=== PATIENT | female | born 1995 | race Two or more races ===

== ENCOUNTER 2017-05-05 20:27 | Emergency (ER) | payer MEDICAID ==
[~2017-05-05] VITALS: Ht 160 cm; Wt 76.2 kg
[~2017-05-05 20:27] MED LIST: NORPTMEDS CO
[2017-05-05 21:57] LABS: Urine Bilirubin Negative (Negative); Urine Blood Negative /uL (Negative); Urine Color Yellow (Yellow); Urine Glucose Normal (Normal); Urine Nitrite Negative (Negative); Urine RBC 3 /hpf (0 - 4); Urine Squamous Epithelial Cell FEW /hpf (<5); Urine Urobilinogen Normal (Negative)
[2017-05-05 22:04] LABS: CONDITION Y; Hematocrit 43.5 % (36.0-46.0); Hemoglobin 15.3 g/dL (12.2-16.2); Mean Corpuscular Hemoglobin 33.8 pg (28.0-32.0); Mean Corpuscular Hgb Conc. 35.2 g/dL (32.0-36.0); Mean Corpuscular Volume 96.2 fL (80.0-100.0); Mean Platelet Volume 9.3 fL (7.4-10.4); Platelet Count (auto) 246 10^3/uL (140-450); Red Cell Distribution Width 12.4 % (11.6-16.0); SUSPECT SEE PRINTOUT; White Blood Cell 18.1 10^3/uL (4.4-10.8)
[2017-05-05 22:06] LABS: Metamyelocytes % 0; Myelocytes % 0; Promyelocytes % 0; Reactive Lymphocytes 0
[2017-05-05 22:10] LABS: Partial Thromboplastin Time 23.8 sec (22.64-33.71); Prothrombin Time 10.9 sec (9.37-12.3)
[2017-05-05 22:42] LABS: Albumin 4.6 g/dL (3.4-5.0); Alkaline Phosphatase 87 U/L (45-117); Amylase 39 U/L (25-115); Anion Gap 12 (5-15); Aspartate Aminotransferase 22 U/L (15-37); BUN/Creatinine Ratio 13.7; Bilirubin, Total 1.5 mg/dL (0.2-1.0); Blood Urea Nitrogen 10 mg/dL (7-18); Calcium 8.8 mg/dL (8.5-10.1); Carbon Dioxide 20 mmol/L (21-32); Chloride 105 mmol/L (98-107); GFR African American 127 mL/min; GFR Non-African American 105 mL/min; Glucose 98 mg/dL (74-106); Magnesium 1.8 mg/dL (1.6-2.6); Potassium 3.6 mmol/L (3.5-5.1); Sodium 137 mmol/L (136-145)
[2017-05-05 22:45] LABS: Platelet Estimate Adequate; Stomatocytes Few
[2017-05-05 22:51] LABS: Urine Ketone 2+ (Negative)
[2017-05-06] MEDS ORDERED: NALBUPHINE HCL 10 MG/1ml INJECTION IV ONE
[2017-05-06] MEDS ORDERED: ONDANSETRON HCL 4 MG/2 ML VIAL IV ONE (03:45)
[2017-05-06] MEDS ORDERED: MORPHINE SULFATE 4 MG/ML SYRG IV ONE (03:45)
[2017-05-06] MEDS ORDERED: FAMOTIDINE (10MG/ML) 2ML VL IV ONE (03:45)
[2017-05-06] MEDS ORDERED: SODIUM CHLORIDE 0.9% 1,000 ML IV ONE ×2 (04:15)
[2017-05-06 05:08] VITALS: BP 103/53
[2017-05-06] MEDS ORDERED: cefTRIAXone 1GM/50ML D5W 50 ML IV ONE (05:15)
[2017-05-06] MEDS ORDERED: ACETAMINOPHEN 500 MG TAB PO ONE (06:49)
== END 2017-05-06 07:29 | disposition home or self-care (01) ==
LOC: ER 20:56
DX: N39.0 Urinary tract infection, site not specified (principal); D72.829 Elevated white blood cell count, unspecified; Z90.49 Acquired absence of other specified parts of digestive tract
CPT/HCPCS: 36415; 74176; 80053; 81001; 81025; 82150; 83690; 83735; 84484; 85007; 85027; 85610; 85730; 93005; 96361; 96365; 96375; 99285; J0696; J2270; J2300; J2405; J3490; J7030